=== PATIENT | male | born 1970 | race American Indian/Alaskan Native ===

== ENCOUNTER 2017-08-06 11:45 | Day surgery (SDC) | payer MEDICAID ==
[2017-08-01 11:01] VITALS: BMI 35.2
[2017-08-06] MEDS ORDERED: Midazolam 2 MG/2 ML VIAL ONE ×2 (14:25→14:36)
[2017-08-06] MEDS ORDERED: Propofol 10 mg/ml Inj (20 ML) ONE ×2 (14:25→14:37)
[2017-08-06] MEDS ORDERED: Lidocaine 2% Jelly (Uro-Jet) ONE (14:27)
[2017-08-06] MEDS ORDERED: Ciprofloxacin 400mg/200ml D5W 400 MG/200 ML BAG IVPB ONE (14:27)
[2017-08-06] MEDS ORDERED: HYDROmorphone 0.5 mg/0.5 ml ISec IVP PRN (14:57)
[2017-08-06 16:41] VITALS: BP 113/70; PULSE 70; RESP 20; TEMP 97.7; O2SAT 100
--- NOTE | 2017-08-08 01:43 | OP ---
PROCEDURE DATE: PREOPERATIVE DIAGNOSIS: Prostatic hypertrophy, frequency. 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 PROCEDURE: Cystodilatation. DESCRIPTION OF PROCEDURE: While the patient in lithotomy position and after starting anesthesia, patient was given Cipro 400 IV piggy bag, cystoscopy done which revealed mild submeatal stenosis which dilated, urethra normal down to the prostatic urethra. Prostatic urethra showed large median lobe elevate the bladder neck and the floor causing obstruction. While the scope in the zero, u can see the prostate in the middle like ball with both lateral lobe open. The bladder itself trabeculated 3 plus, no tumor, no stone, dome of wall with the normal limits, trigone within normal limits, multiple picture taken for the trabeculation, bladder, and the prostate. The patient tolerated the procedure well after emptying the bladder. The scope removed and dilatation was done before. Most likely the patient needs transurethral resection of the median lobe and the prostate due to the recurrent infection and difficult voiding. Wilfrido Valadez MD
== END 2017-08-06 16:50 | disposition home or self-care (01) ==
LOC: C.SDS 11:45 → EDBD 13:45 → C.SDS 16:50
PROVIDERS: ATTEND Specialist
DX: N40.1 Benign prostatic hyperplasia with lower urinary tract symptoms (principal); N13.8 Other obstructive and reflux uropathy; R41.3 Other amnesia; N35.9 Urethral stricture, unspecified; R35.0 Frequency of micturition
CPT/HCPCS: 52281; J0744

== ENCOUNTER 2017-10-15 10:57 | Observation (INO) | payer MEDICAID ==
[2017-08-01 11:00] VITALS: BMI 35.2
[2017-10-15] MEDS ORDERED: Ciprofloxacin 400mg/200ml D5W 400 MG/200 ML BAG IVPB ONE (12:51)
[2017-10-15] MEDS ORDERED: Propofol 10 mg/ml Inj (20 ML) ONE (13:17)
[2017-10-15] MEDS ORDERED: Midazolam 2 MG/2 ML VIAL ONE (13:17)
[2017-10-15] MEDS ORDERED: Oxycodone/Acetaminophen 5/325 mg Tab PO PRN (14:45)
[2017-10-15] MEDS ORDERED: HYDROmorphone 0.5 mg/0.5 ml ISec ONE (14:52)
[2017-10-15] MEDS ORDERED: HYDROmorphone 0.5 mg/0.5 ml ISec IVP PRN (14:55)
[2017-10-15] MEDS ORDERED: Lactated Ringer's 1,000 ML IV SCH (15:00)
[2017-10-15 16:11] VITALS: O2SAT 98
[2017-10-15] MEDS: Lactated Ringer's 1,000 ML IV SCH (16:59)
[2017-10-16 01:14] VITALS: RESP 20
[2017-10-16] MEDS: Lactated Ringer's 1,000 ML IV SCH (04:08)
[2017-10-16 08:40] VITALS: BP 124/80; PULSE 44; TEMP 98
[2017-10-16] MEDS ORDERED: Pneumococcal 23-Valent Vaccine IM ONE (17:00)
--- NOTE | 2017-10-25 00:27 | OP ---
PROCEDURE DATE: 10/15/2017 BLOOD LOSS: 5 mL. PREOPERATIVE DIAGNOSIS: Bladder neck obstruction and large median bar causing obstruction with prostatic hypertrophy. POSTOPERATIVE DIAGNOSIS: Bladder neck obstruction and large median bar causing obstruction with prostatic hypertrophy. PROCEDURE: Transurethral resection of the prostate. SURGEON: Wilfrido Valadez MD DESCRIPTION OF PROCEDURE: While the patient in lithotomy position and after starting anesthesia, genitalia was prepped and draped in sterile fashion, and the patient given Cipro 400 IV piggyback. Urethra was dilated and resectoscope sheath inserted. The bladder revealed trabeculation. No tumor, no stone. The prostate showed the median lobe, which was resected first. After that, all the lateral tissue causing the obstruction resected. All tissue irrigated out. The bleeders on the bladder neck and the lateral side fulgurated. At the end of the procedure, there was no bleeding and all the tissue out. After filling the bladder, the scope was removed, a #22, 3-way Workman inserted. The irrigation was clear. The patient tolerated the procedure well and was transferred to the recovery room in stable condition. We will keep the patient under observation overnight. Wilfrido Valadez MD
== END 2017-10-16 15:10 | disposition home or self-care (01) ==
LOC: UNDOADMOB 10:57 → C.9S 10:57 → INTOOBSV 10:57 → C.9S 14:24 → C.6T 14:34 → C.9S 14:34 → C.6T 14:34 → UNDODISOB 10-16 15:10
PROVIDERS: ADMIT Specialist; ATTEND Specialist
DX: N40.1 Benign prostatic hyperplasia with lower urinary tract symptoms (principal); R33.9 Retention of urine, unspecified; R35.0 Frequency of micturition; N13.8 Other obstructive and reflux uropathy
CPT/HCPCS: 52601; 88305; G0378; J0744; J1170; J7120

== ENCOUNTER 2018-03-06 10:47 | Emergency (ER) | payer MEDICAID ==
[2018-03-06 10:47] VITALS: BMI 35.2
[2018-03-06 10:59] VITALS: RESP 18
--- NOTE | 2018-03-06 11:40 | C.PDOC ---
History Of Present Illness 47-year-old male, presents to the emergency department with complaints of pain to his right lower ribs ongoing for the past few days. pain worsens with movement and palpation. He denies any nausea/vomiting, fever or shortness of breath. no other complaints at this time. Time Seen by Provider: 03/06/18 11:00 Chief Complaint (Nursing): Rib Injury History Per: Patient History/Exam Limitations: no limitations Past Medical History Reviewed: Historical Data, Nursing Documentation, Vital Signs Vital Signs: Last Vital Signs Temp 98.3 F 03/06/18 10:56 Pulse 86 03/06/18 10:56 Resp 18 03/06/18 10:56 BP 122/80 03/06/18 10:56 Pulse Ox 95 03/06/18 10:56 Family History: States: No Known Family Hx - Social History Hx Alcohol Use: No Hx Substance Use: No - Immunization History Hx Tetanus Toxoid Vaccination: No Hx Influenza Vaccination: No Hx Pneumococcal Vaccination: No Review Of Systems Constitutional: Negative for: Fever Cardiovascular: Positive for: Other (rib pain) Respiratory: Negative for: Shortness of Breath Physical Exam - Physical Exam Appears: Non-toxic, No Acute Distress Skin: Warm, Dry, No Rash Head: Atraumatic Eye(s): bilateral: Normal Inspection Nose: Normal Oral Mucosa: Moist Lips: Normal Appearing Neck: Normal ROM Chest: Symmetrical, No Deformity, No Tenderness Cardiovascular: Rhythm Regular, No Murmur Respiratory: Normal Breath Sounds, No Accessory Muscle Use Back: Normal Inspection Extremity: Normal ROM Neurological/Psych: Oriented x3, Normal Speech ED Course And Treatment O2 Sat by Pulse Oximetry: 95 (on RA) Pulse Ox Interpretation: Normal (RA) Disposition - Disposition Referrals: Lillie Black MD [Staff Provider] - Disposition: HOME/ ROUTINE Disposition Time: 12:30 Condition: STABLE Additional Instructions: Follow up with the medical doctor within 1-2 days. Return if worsened. Prescriptions: Aluminum Hydroxide/Magnesium [Maalox Plus 30 ml] 30 ml PO BID #240 ml Amoxicillin/Clavulanate [Augmentin 875 MG-125 MG] 1 tab PO BID #14 tab Naproxen [Naprosyn] 500 mg PO BID #20 tab Instructions: Pleuritic Chest Pain (DC) Forms: [employer] ([place]) - Clinical Impression Clinical Impression: Pleurisy - Scribe Statement The provider has reviewed the documentation as recorded by the Scribe (Christian King) All medical record entries made by the Scribe were at my direction and personally dictated by me. I have reviewed the chart and agree that the record accurately reflects my personal performance of the history, physical exam, medical decision making, and the department course for this patient. I have also personally directed, reviewed, and agree with the discharge instructions and disposition.
[2018-03-06 12:54] VITALS: BP 119/70; PULSE 69; TEMP 97.7
[2018-03-06] MEDS ORDERED: Naproxen 550 mg Tab PO STA (12:55)
[2018-03-06] MEDS ORDERED: Alum-Mag Hydrox-Simethicone Susp (30 mL) PO STA (12:56)
[2018-03-06] MEDS ORDERED: Naproxen 550 mg Tab PO ONE (13:02)
[2018-03-06] MEDS ORDERED: Alum-Mag Hydrox-Simethicone Susp (30 mL) ONE (13:02)
--- NOTE | 2018-03-06 14:10 | RAD ---
Date of service: 03/06/2018 PROCEDURE: Radiographs of the Chest and Right Ribs. HISTORY: rib pain x several years COMPARISON: None available. TECHNIQUE: Frontal radiograph of the chest and multiple oblique radiographs of the right ribs were obtained. FINDINGS: RIGHT RIBS: No acute fracture or focal lesion visualized. Bone alignment and mineralization are normal. LUNGS: The lungs are well inflated and clear. PLEURA: No pneumothorax or pleural fluid. CARDIOVASCULAR: Normal cardiac size. No pulmonary vascular congestion. No aortic atherosclerotic calcification present OTHER FINDINGS: None. IMPRESSION: Unremarkable radiographs of the chest and right ribs. No acute right rib fracture.
[2018-03-07 21:42] VITALS: O2SAT 95
== END 2018-03-06 13:19 | disposition home or self-care (01) ==
LOC: C.ER 10:47
DX: R09.1 Pleurisy (principal)